=== PATIENT | male | born 1975 | race Caucasian/White ===

== ENCOUNTER 2017-12-02 15:08 | Emergency (ER) | payer MEDICARE, OTHER ==
[~2017-12-02] VITALS: Ht 172.7 cm; Wt 74.8 kg
[2017-12-02 15:15] VITALS: BP 169/80
--- NOTE | 2017-12-02 15:20 | NUR ---
BBRA: BEHAVIORAL, RUN OUT OF PSYCHE MEDS. METH/HEROIN USER. PT IS AAOX4. RESP EVEN AND UNLABORED. VSS. NO S/S OF ACUTE DISTRESS NOTED. PT SAFETY AND COMOFRT MEASURES IN PLACE. PT PLACED ON MONITOR AND POX. PT'S MOTHER BEDSIDE WITH PT.
[2017-12-02] MEDS ORDERED: OLANZAPINE 10 MG VIAL IM ONE ×2 (15:22→15:30)
[2017-12-02 16:48] LABS: BASOPHILS # (AUTO) 0.2 /CMM (0.0-0.2); BASOPHILS % (AUTO) 1.3 % (0.0-2.0); EOSINOPHILS % (AUTO) 0.7 % (0.0-6.0); HEMATOCRIT 44 % (39-51); LYMPHOCYTES # (AUTO) 1.8 /CMM (0.8-4.8); LYMPHOCYTES % (AUTO) 13.6 % (20.0-44.0); MEAN CORPUSCULAR HGB CONC 34 g/dl (31.0-36.0); MEAN CORPUSCULAR VOLUME 91 fL (80-96); MONOCYTES # (AUTO) 0.7 /CMM (0.1-1.30); NEUTROPHILS # (AUTO) 10.2 /CMM (1.8-8.9); NEUTROPHILS % (AUTO) 79.4 % (43.0-81.0); PLATELET COUNT (AUTO) 366 /CMM (150-450); RDW COEFFICIENT OF VARIATION 12.7 (11.5-15.0)
[2017-12-02 16:59] LABS: CARBON DIOXIDE 27 mmol/L (21-32); CHLORIDE 103 mmol/L (98-107); CREATININE 0.8 mg/dL (0.6-1.3); GLUCOSE 118 mg/dL (74-106); POTASSIUM 3.8 mmol/L (3.5-5.1); SODIUM SERUM 139 mmol/L (136-145); UREA NITROGEN, BLOOD 11 mg/dL (7-18)
[2017-12-02 17:04] LABS: ALANINE AMINOTRANSFERASE 40 U/L (12-78); ALBUMIN 3.6 g/dL (3.4-5.0); ALCOHOL, BLOOD < 3 mg/dL (0-0); ALKALINE PHOSPHATASE 104 U/L (46-116); ASPARTATE AMINOTRANSFERASE 31 U/L (15-37); BILIRUBIN,DIRECT 0.2 mg/dL (0.0-0.2); BILIRUBIN,TOTAL 0.7 mg/dL (0.2-1.0); SALICYLATE 5.9 mg/dL (2.8-20.0); TOTAL PROTEIN, SERUM 7.6 g/dL (6.4-8.2)
[2017-12-02 17:05] LABS: ACETAMINOPHEN 0 ug/ml (10-30)
--- NOTE | 2017-12-02 17:16 | NUR ---
Patient eloped from facility accompanied by mother. ER MD notified. VSS prior to eloping from facility.
== END 2017-12-02 17:19 | disposition left against medical advice (07) ==
LOC: ER 15:09
DX: F15.10 Other stimulant abuse, uncomplicated (principal); R45.1 Restlessness and agitation; Z71.6 Tobacco abuse counseling
CPT/HCPCS: 36415; 80048-TC; 80076-TC; 85025-TC; A4606; G0480; J3490; Z7610